=== PATIENT | female | born 1950 | race Caucasian/White ===

== ENCOUNTER 2017-04-24 18:20 | Emergency (ER) | payer MEDICARE ==
[2017-04-24] MEDS ORDERED: IBUPROFEN 400 MG TABLET ONE (18:51)
[2017-04-24] MEDS ORDERED: LIDOCAINE 1%-EPI 1:100,000 20 ML VIAL IJ ONE (18:51)
[2017-04-24] MEDS ORDERED: ACETAMINOPHEN 325 MG TAB ONE (18:59)
== END 2017-04-24 20:18 | disposition home or self-care (01) ==
LOC: EDH 18:20
DX: S81.811A Laceration without foreign body, right lower leg, initial encounter (principal); I10 Essential (primary) hypertension; E78.5 Hyperlipidemia, unspecified; E11.9 Type 2 diabetes mellitus without complications; I25.10 Atherosclerotic heart disease of native coronary artery without angina pectoris; Z88.6 Allergy status to analgesic agent; Z88.2 Allergy status to sulfonamides; Z79.4 Long term (current) use of insulin; Z72.0 Tobacco use; W22.8XXA Striking against or struck by other objects, initial encounter; Y93.89 Activity, other specified; Y92.89 Other specified places as the place of occurrence of the external cause; Y99.8 Other external cause status
CPT/HCPCS: 12002; 73590; 99284; J3490

== ENCOUNTER 2017-05-05 17:13 | Emergency (ER) | payer MEDICARE ==
[2017-05-05] MEDS ORDERED: CLINDAMYCIN HCL 150 MG CAP ONE (18:35)
== END 2017-05-05 18:47 | disposition home or self-care (01) ==
LOC: EDH 17:13
DX: L03.115 Cellulitis of right lower limb (principal); E11.9 Type 2 diabetes mellitus without complications; E78.5 Hyperlipidemia, unspecified; I10 Essential (primary) hypertension; I25.10 Atherosclerotic heart disease of native coronary artery without angina pectoris; Z88.2 Allergy status to sulfonamides; Z88.6 Allergy status to analgesic agent; Z79.4 Long term (current) use of insulin; Z98.890 Other specified postprocedural states

== ENCOUNTER 2017-05-09 13:59 | Emergency (ER) | payer MEDICARE | END 2017-05-09 14:33 | disposition home or self-care (01) | LOC: EDH 13:59 | DX: S81.811D Laceration without foreign body, right lower leg, subsequent encounter (principal); I25.10 Atherosclerotic heart disease of native coronary artery without angina pectoris; E11.9 Type 2 diabetes mellitus without complications; E78.5 Hyperlipidemia, unspecified; I10 Essential (primary) hypertension; Z79.4 Long term (current) use of insulin; Z88.2 Allergy status to sulfonamides; Z88.6 Allergy status to analgesic agent; X58.XXXD Exposure to other specified factors, subsequent encounter | CPT/HCPCS: 99281 ==

== ENCOUNTER → 2018-04-24 | Outpatient (CLI) | payer MEDICARE | END | disposition home or self-care (01) | LOC: SHCH 16:20 | PROVIDERS: ATTEND Internal Medicine Cardiovascular Disease | DX: R00.2 Palpitations (principal) | CPT/HCPCS: 93306 ==

== ENCOUNTER 2022-05-16 05:57 | Day surgery (SDC) | payer MEDICARE ==
[2022-05-14 10:19] VITALS: BP 130/80
[2022-05-14 10:22] LABS: HEMATOCRIT 36.9 % (36-48); LYMPHOCYTES % (AUTO) 18.3 % (21.0-51.0); MEAN CORPUSCULAR HEMOGLOBIN 27.5 pg (27.0-33.0); MEAN CORPUSCULAR HGB CONC 31.4 g/dL (32.0-36.0); MEAN CORPUSCULAR VOLUME 87.4 fL (79-99); MONOCYTES % (AUTO) 7.8 % (3.0-13.0); NEUTROPHILS % (AUTO) 69.6 % (40.0-77.0); PLATELET COUNT (AUTO) 301 K/uL (130-400); RED BLOOD CELL COUNT(AUTO) 4.22 MIL/uL (4.00-5.50); RED CELL DISTRIBUTION WIDTH 15.1 % (11.0-15.5); WHITE BLOOD COUNT (AUTO) 7.3 K/uL (4.8-10.8)
[2022-05-14 10:34] LABS: CREATININE 0.9 mg/dL (0.5-1.5); POTASSIUM 4.2 mmol/L (3.5-5.1)
[2022-05-14 10:36] LABS: INR 1.03 (0.85-1.15); PROTHROMBIN TIME 11.2 SEC (9.6-11.6)
[2022-05-14 10:37] LABS: PARTIAL THROMBOPLASTIN TIME 29.1 SEC (26.3-35.5)
[~2022-05-16] VITALS: Ht 170.2 cm; Wt 133.0 kg
[2022-05-16] VITALS (9 sets, daily range): BP systolic 96–129; BP diastolic 54–78
[~2022-05-16 05:57] MED LIST: DRON400T7 PO; EMPA25TA PO; FURO20TA4 PO; INSLAN SQ; LEVO75CA5 PO; LISI2.5T13 PO; NORT50CA PO; POTA-200 PO; PRAV40TA3 PO; RIVA20TA PO; [UNRECOGNIZED DRUG - OTHER] TD
[2022-05-16] MEDS ORDERED: 0.9%NACL 1000ML 1,000 ML IV ONE (06:27)
[2022-05-16] MEDS ORDERED: HEPARIN 10,000 UNIT/10ML (1,000 UNIT/ML) VIAL ONE (07:21)
[2022-05-16] MEDS ORDERED: LIDOCAINE HCL 1% MDV 50ML VIAL ONE (07:44)
[2022-05-16] MEDS ORDERED: MIDAZOLAM HCL 1 MG/ML 2ML VIAL ONE ×4 (07:53→08:27)
[2022-05-16] MEDS ORDERED: MEPERIDINE-PF 25 MG/ML SYG ONE ×4 (07:54→08:27)
== END 2022-05-16 12:59 | disposition home or self-care (01) ==
LOC: DAH 05:57
PROVIDERS: ATTEND Internal Medicine Cardiovascular Disease
DX: I48.3 Typical atrial flutter (principal); I48.0 Paroxysmal atrial fibrillation; I44.7 Left bundle-branch block, unspecified; I49.8 Other specified cardiac arrhythmias; I10 Essential (primary) hypertension; E03.9 Hypothyroidism, unspecified; I87.2 Venous insufficiency (chronic) (peripheral); E11.40 Type 2 diabetes mellitus with diabetic neuropathy, unspecified; E66.9 Obesity, unspecified; K21.9 Gastro-esophageal reflux disease without esophagitis; E78.5 Hyperlipidemia, unspecified; Z79.01 Long term (current) use of anticoagulants; Z79.899 Other long term (current) drug therapy; Z88.2 Allergy status to sulfonamides; Z88.6 Allergy status to analgesic agent; Z88.8 Allergy status to other drugs, medicaments and biological substances; Z98.890 Other specified postprocedural states; Z98.891 History of uterine scar from previous surgery; Z82.49 Family history of ischemic heart disease and other diseases of the circulatory system; Z68.41 Body mass index [BMI] 40.0-44.9, adult
CPT/HCPCS: 80048; 85025; 85610; 85730; 36415; 93005 ×2; 93653; 82948 ×2; C1894 ×2; C1732 ×2; A4649 ×2; J7030; J1644 ×2; J2250 ×4; J2175 ×4; J3490; A4215; A4222; A4221; A4663; A4216; A4606; A4223 ×3; 99156; 99157